=== PATIENT | male | born 1930 | race Caucasian/White ===

== ENCOUNTER 2019-11-11 12:48 | Outpatient (RCR) | payer MEDICARE, BC ==
[~2019-11-11 12:48] MED LIST: AMLODIPINE BESYL5 MG PO; ASPIR 8181 MG PO; ATORVASTATIN CA10 MG PO; CORDARONE200 MG PO; LISINOPRIL10 MG PO; MAGNESIUM OXID400 MG PO; PLAVIX75 MG PO
== END 2019-11-13 ==
LOC: PT 12:48
PROVIDERS: ATTEND Specialist
DX: M17.12 Unilateral primary osteoarthritis, left knee (principal); M79.662 Pain in left lower leg; M25.662 Stiffness of left knee, not elsewhere classified; M62.81 Muscle weakness (generalized); R26.2 Difficulty in walking, not elsewhere classified